=== PATIENT | female | born 1995 | race Two or more races ===

== ENCOUNTER 2016-10-11 10:41 | Emergency (ER) | payer OTHER ==
[2016-10-11 12:04] LABS: SPECIFIC GRAVITY 1.015 (1.001-1.030); URINE BILIRUBIN NEGATIVE (NEGATIVE); URINE BLOOD NEGATIVE (NEGATIVE); URINE GLUCOSE (UA) NEGATIVE (NEGATIVE); URINE LEUKOCYTE ESTERASE TRACE (NEGATIVE); URINE NITRITE NEGATIVE (NEGATIVE); URINE PROTEIN NEGATIVE (NEGATIVE); URINE UROBILINOGEN NORMAL (0-1 mg/dl)
[2016-10-11 12:06] LABS: URINE APPEARANCE CLEAR; URINE COLOR YELLOW
[2016-10-11 12:16] LABS: URINE BACTERIA FEW; URINE EPITHELIAL CELLS FEW /hpf; URINE RBC 0-1 /hpf; URINE WBC 0-1 /hpf
== END 2016-10-11 12:53 | disposition home or self-care (01) ==
LOC: ED 10:41
DX: O20.0 Threatened abortion (principal); Z3A.18 18 weeks gestation of pregnancy